=== PATIENT | female | born 2000 | race African-American/Black ===

== ENCOUNTER 2021-06-04 13:16 | Inpatient (IN) | payer OTHER, SELFPAY ==
--- NOTE | ~2021-06-04 | CT_ITS ---
EXAMINATION: CT abdomen pelvis wo con DATE: 06/05/2021 10:07 INDICATION: Abdominal pain TECHNIQUE: Computed tomography (CT) of the abdomen and pelvis was performed without intravenous contr ast. Automated exposure control and iterative reconstruction technique were employed. The dose-length product was 225.73 mGy-cm. COMPARISON: None FINDINGS: Lung bases are clear. Heart size is normal. No pericardial or pleural effusion. Central venous cathet er in the superior vena cava with distal tip at the high right atrium. Diffuse mildly increased densi ty of the liver with HU of 77. Gallbladder, spleen, pancreas, bilateral adrenal glands and kidneys ar e normal. Marked distention of the bladder which measures 16 x 11 x 13 cm. Uterus and adnexa are unre markable. Bowels including the appendix are unremarkable. No bowel wall thickening or obstruction. No free intraperitoneal gas or fluid. No pathologically enlarged abdominal or pelvic lymphadenopathy. B ones are unremarkable. IMPRESSION: 1. Marked distention of the bladder. No other acute intra-abdominal/pelvic process. 2. Borderline elevated hepatic attenuation. Differential would include iron deposition cysts in the s etting of hemachromatosis or hemosiderosis, copper deposition in the setting of Patrick's disease, gly cogen storage diseases and related to medications such as amiodarone or gold therapy. Reviewed, dictated and finalized at location A. IMPRESSION: 1. Marked distention of the bladder. No other acute intra-abdominal/pelvic proc ess. 2. Borderline elevated hepatic attenuation. Differential would include iron dep osition cysts in the setting of hemachromatosis or hemosiderosis, copper deposi tion in the setting of Patrick's disease, glycogen storage diseases and related to medications such as amiodarone or gold therapy.
[2021-06-04 13:15] VITALS: BP 105/76; PULSE 133; RESP 16; TEMP 37.1; O2SAT 99
--- NOTE | 2021-06-04 13:19 | ADMGEN ---
This patient, Westley Whitaker, was admitted to Intensive Care Unit-1. Patient/family oriented to hospital policies and general routines including ID bracelet, bed and alarms, visiting hours, pain management, procedures, bathroom and other care routines, personal items, smoking policy, room service/diet, and visiting hours. Information on how to activate the Rapid Response Team has been discussed. Patient/Family are encouraged to report perceived risks to care and to ask questions if they do not understand what they are told or what they should do.
--- NOTE | 2021-06-04 13:19 | PC.NURSE ---
BG 196 on admission. Insulin gtt resumed
[2021-06-04 13:28] VITALS: BMI 22.1
--- NOTE | 2021-06-04 13:54 | WPDCNINT ---
Assessment and Plan Assessment and plan (1) DKA (diabetic ketoacidosis): Code(s): E11.10 - Type 2 diabetes mellitus with ketoacidosis without coma Status: Acute Assessment and Plan: patient has received 4-5 L of IV fluid bolus. blood sugar now is less than 200 transition to D5 half-normal with potassium continue insulin drip serial BMPs (2) Diabetic neuropathy: Code(s): E11.40 - Type 2 diabetes mellitus with diabetic neuropathy, unspecified Status: Acute Assessment and Plan: will resume Neurontin once patient is able to take p.o. medication (3) Diabetes mellitus: Code(s): E11.9 - Type 2 diabetes mellitus without complications Status: Acute Assessment and Plan: Consult nurse educator HB A1c (4) Abdominal pain: Code(s): R10.9 - Unspecified abdominal pain Status: Acute Assessment and Plan: likely secondary to DKA LFTs were unremarkable lactate had normalized UA unremarkable check lipase check CT abdomen pelvis (5) Back pain: Code(s): M54.9 - Dorsalgia, unspecified Status: Acute Assessment and Plan: patient reports back pain which is new as per her and started while she was in the hospital.. She has diffuse tenderness in the lumbar spine and both flanks along with abdomen is out of proportion of her symptoms. LFTs were unremarkable lactate had normalized UA unremarkable check lipase check CT abdomen pelvis (6) Lactic acidosis: Code(s): E87.2 - Acidosis Status: Acute Assessment and Plan: her initial lactate was 2.7 but repeat lactate was 1.5 after IV fluid. likely secondary to hypovolemia and dehydration cultures were sent and pending chest x-ray and UA are negative WBC normal Additional Plan DVT prophylaxis - SCDs Code Status - Full Code Spectrographic Analyst Consult Note Consult date: 06/04/21 Time Seen: 13:30 HPI: Westley Whitaker is a 20 year old female with history of diabetes was transferred to [facility] with DKA. Patient states she started feeling short of breath this morning. Her sugars have been running high over last few days despite her taking her insulin regularly. She denies any chest pain cough or fever. she did have mild abdominal pain before going to the hospital but no nausea vomiting diarrhea or constipation . She denies any sick contacts. He has been admitted in the past with DKA. No change in sensation of taste or smell. He has not received COVID vaccine. No dysuria, Foul-smelling urine or hematuria. Review system was positive for back pain which she states started after coming to the hospital is 10/10 severe, does not radiate anywhere, no relieving or aggravating factors. .Denies any weakness or paresthesias in extremities, states that pain was not present before going to the hospital. no loss of bowel or bladder control. she does report pain in the legs but states that is regular neuropathy pain and is not any different. . She denies any fall or injury only. All other systems were reviewed and were negative. Patient was found to be tachycardic and in DKA in outside hospital ED. She was given IV fluid bolus. they were unable to place peripheral IV hence his central venous catheter was placed. patient was started on IV insulin. her point of care test was negative. EKG showed sinus tachycardia. her chest x-ray was unremarkable and UA was negative. her initial lactic acid was 2.7 but repeat lactic acid was normal COVID-19 PCR test was negative Review of Systems Review of Systems: All systems reviewed & are unremarkable except as noted in HPI and below (HPI) [facility] Past Medical History Medical History (Updated 06/04/21 @ 14:05 by Maurice Vallejo MD) Diabetes mellitus Diabetic neuropathy Social History Social History (Updated 06/04/21 @ 13:56 by Maurice Vallejo MD) Smoking status: Current every day smoker Alcohol intake: tomasz
[2021-06-04] MEDS: KCL 20 MEQ/D5/0.45% SOD CHL 1,000 ML 150 ML IV CONT (13:56)
[2021-06-04 14:00] VITALS: BP 113/81; PULSE 123; RESP 20; O2SAT 100
[2021-06-04] MEDS: MORPHINE SULFATE (*CRX) 2 MG/ML INJ IV PUSH (14:09)
[2021-06-04 14:22] LABS: Anion Gap 20 mmol/L (8-16); Blood Urea Nitrogen 8 mg/dL (7-17); Calcium 7.9 mg/dL (8.4-10.2); Carbon Dioxide 6 mmol/L (22-30); Chloride 118 mmol/L (98-107); Estimated CRCL calculation 103 ml/min; Estimated Glomerular Filt Rate > 60; Glucose 171 mg/dL (65-110); Magnesium 1.9 mg/dL (1.6-2.3); Phosphorus 2.6 mg/dL (2.5-4.5); Potassium 4.2 mmol/L (3.4-5.0); Sodium 144 mmol/L (137-145)
[2021-06-04 14:31] LABS: Glucose Point of Care 195 mg/dl (65-105)
--- NOTE | 2021-06-04 14:31 | PM.IMHP ---
H&P: HPI History of Present Illness Date/Time: 06/04/21 14:31 Chief Complaint: DKA Narrative: 20 years old female with history of insulin-dependent diabetes was transferred from [facility] with management of DKA in [facility] intensive care unit. According to the patient his diabetes for long time for the last few days she was not feeling well, he was feeling weak and tired he also abdominal pain but no nausea or vomiting. Patient denies any chest pain or shortness of breath at present. Patient went to [facility] he was given IV fluids, central line was placed. Patient test was negative. Patient COVID test was negative. At present patient is slightly drowsy but feel much better. Patient denies any shortness of breath or chest pain. Patient abdominal pain is also better now. Patient denies any fever chills. Review of Systems Review of Systems: All systems reviewed & are unremarkable except as noted in HPI and below ( the history and physical examination) PMFSH Past Medical History Medical History Diabetes mellitus Diabetic neuropathy Social History Social History Smoking status: Current every day smoker Alcohol intake: never Substance use: current Substance use type: marijuana Gender identity (if verbalized by the patient): Female Spiritual care concerns: No Meds Home Medications and Allergies Home Medications Medication Instructions Recorded Confirmed Type gabapentin 600 mg PO TID 06/04/21 06/04/21 History Allergies Allergy/AdvReac Type Severity Reaction Status Date / Time No Known Allergies Allergy Unverified 06/17/19 22:57 Vital Signs Vital Signs - 24 hr 06/04/21 13:15 Temperature 37.1 C Pulse Rate 133 H Respiratory Rate 16 Blood Pressure 105/76 Pulse Oximetry 99 Exam Narrative: General: Pt is alert awake and in NAD Lungs/Chest: Trachea central Clear BS B/L, No crackles or wheezing. Cardiac: RRR. Normal S1 S2. No murmurs Circulation: Pedal pulses are intact and symmetrical. Abdomen: Normal bowel sounds.. Soft. nondistended, skin piercing in umbilicus, mild diffuse tenderness to palpation, no guarding or rigidity Extremities: No clubbing, cyanosis or edema. Warm : Mcdaniel in place Neurologic: Follows commands. Moves all 4 extremities PERRL alert oriented x3, sensation to touch is intact in both feet, muscle strength is normal bilaterally, no focal neurological deficit heparin Skin: several tattoos on skin MSK: patient reports diffuse tenderness in lumbar spine but also on both flanks H&P: Results Labs Labs: [facility] 06/04/21 14:02 Sodium 144 Potassium 4.2 Chloride 118 H Carbon Dioxide 6 L BUN 8 Creatinine 0.60 L Glucose 171 H Calcium 7.9 L Assessment and Plan Assessment and plan (1) DKA (diabetic ketoacidosis): Code(s): E11.10 - Type 2 diabetes mellitus with ketoacidosis without coma Status: Acute Assessment and Plan: patient has received 4-5 L of IV fluid bolus. blood sugar now is less than 200 transition to D5 half-normal with potassium continue insulin drip serial BMPs (2) Diabetic neuropathy: Code(s): E11.40 - Type 2 diabetes mellitus with diabetic neuropathy, unspecified Status: Acute Assessment and Plan: will resume Neurontin once patient is able to take p.o. medication (3) Diabetes mellitus: Code(s): E11.9 - Type 2 diabetes mellitus without complications Status: Acute Assessment and Plan: Consult clinical nurse educator HB A1c (4) Abdominal pain: Code(s): R10.9 - Unspecified abdominal pain Status: Acute Assessment and Plan: likely secondary to DKA LFTs were unremarkable lactate had normalized UA unremarkable check lipase check CT abdomen pelvis (5) Back pain: Code(s): M54.9 - Dorsalgia, unspeci
[2021-06-04 14:41] LABS: Lipase 34 U/L (23-300)
[2021-06-04 15:54] LABS: Glucose Point of Care 166 mg/dl (65-105)
[2021-06-04 16:00] VITALS: BP 102/67; PULSE 112; PULSE 114; RESP 16; TEMP 37; O2SAT 100
[2021-06-04] MEDS: INSULIN HUMAN REGULAR (*BKC) 100 UNITS in SODIUM CHLORIDE 0.9% IV 99 ML IV CONT (16:12)
[2021-06-04 18:00] VITALS: BP 106/62; PULSE 114; RESP 21; O2SAT 98
[2021-06-04 18:12] LABS: Glucose Point of Care 173 mg/dl (65-105)
[2021-06-04 18:12] LABS: Glucose Point of Care 149 mg/dl (65-105)
[2021-06-04 18:13] LABS: Glucose Point of Care 152 mg/dl (65-105)
[2021-06-04 18:19] LABS: Anion Gap 11 mmol/L (8-16); Blood Urea Nitrogen 5 mg/dL (7-17); Calcium 7.8 mg/dL (8.4-10.2); Carbon Dioxide 10 mmol/L (22-30); Chloride 115 mmol/L (98-107); Estimated CRCL calculation 148 ml/min; Estimated Glomerular Filt Rate > 60; Glucose 140 mg/dL (65-110); Potassium 3.7 mmol/L (3.4-5.0); Sodium 136 mmol/L (137-145)
[2021-06-04] MEDS: INSULIN GLARGINE (*BKC) 100 UNITS/ML 50 UNITS SUB-Q (18:58)
[2021-06-04] MEDS: INSULIN ASPART (*BKC) 100 UNITS/ML SUB-Q (18:59)
[2021-06-04 19:06] LABS: Glucose Point of Care 140 mg/dl (65-105)
[2021-06-04 20:00] VITALS: BP 107/68; PULSE 105; PULSE 115; RESP 12; TEMP 36.9; O2SAT 100
[2021-06-04] MEDS: KCL 20MEQ/0.9% SOD CHL 1,000 ML 75 ML IV CONT (20:35)
[2021-06-04] MEDS: ONDANSETRON INJ 4 MG/2 ML VIAL IV PUSH (20:35)
[2021-06-04 20:40] LABS: Glucose Point of Care 110 mg/dl (65-105)
[2021-06-04 22:00] VITALS: BP 116/65; PULSE 119; PULSE 122; RESP 16; O2SAT 98
[2021-06-05] VITALS (9 sets, daily range): BP systolic 97–123; BP diastolic 52–85; PULSE 60–117; RESP 12–20; TEMP 36.4–37.3; O2SAT 10–100; BMI 22.6
[2021-06-05 00:13] LABS: Glucose Point of Care 52 mg/dl (65-105)
[2021-06-05] MEDS: HYDROcodone/acetaminophen (*CRX) 5-325 MG TABLET 1 TAB PO (00:16)
[2021-06-05 02:11] LABS: Glucose Point of Care 139 mg/dl (65-105)
[2021-06-05 04:51] LABS: Hematocrit 33.5 % (37.0-47.0); Hemoglobin 10.7 g/dL (12.0-15.0); Mean Corpuscular HGB Conc 31.9 g/dl (32-36); Mean Corpuscular Hemoglobin 28.5 pg (26-34); Mean Corpuscular Volume 89.1 fl (80-100); Mean Platelet Volume 9.8 fl (7.4-10.4); Platelet Count Result 278 k/mm3 (150-375); Red Blood Count 3.76 M/mm3 (4.2-5.4); Red Cell Distribution Width 15.1 % (11.5-14.5); White Blood Count 6.1 K/mm3 (4.5-10.0)
[2021-06-05 05:16] LABS: Alanine Aminotransferase 10 U/L (4-35); Albumin Level 3.3 g/dL (3.5-5.1); Alkaline Phosphatase 92 U/L (38-126); Anion Gap 11 mmol/L (8-16); Aspartate Amino Transferase 18 U/L (14-36); Bilirubin,Total 0.6 mg/dL (0.2-1.3); Blood Urea Nitrogen 3 mg/dL (7-17); Calcium 8.6 mg/dL (8.4-10.2); Carbon Dioxide 13 mmol/L (22-30); Chloride 108 mmol/L (98-107); Estimated CRCL calculation 148 ml/min; Estimated Glomerular Filt Rate > 60; Glucose 77 mg/dL (65-110); Magnesium 1.6 mg/dL (1.6-2.3); Potassium 3.5 mmol/L (3.4-5.0); Sodium 132 mmol/L (137-145)
--- NOTE | 2021-06-05 06:23 | PM.IMPN ---
Progress Note: A&P Assessment and Plan (1) DKA (diabetic ketoacidosis): Code(s): E11.10 - Type 2 diabetes mellitus with ketoacidosis without coma Status: Acute Assessment and Plan: patient has received 4-5 L of IV fluid bolus. blood sugar now is less than 200 transition to D5 half-normal with potassium continue insulin drip serial BMPs 06/05/2021 patient bicarb is slightly better now, electrolytes stable, WBC is normal. Will continue current treatment (2) Diabetic neuropathy: Code(s): E11.40 - Type 2 diabetes mellitus with diabetic neuropathy, unspecified Status: Acute Assessment and Plan: will resume Neurontin once patient is able to take p.o. medication (3) Diabetes mellitus: Code(s): E11.9 - Type 2 diabetes mellitus without complications Status: Acute Assessment and Plan: Consult nurses educator HB A1c (4) Abdominal pain: Code(s): R10.9 - Unspecified abdominal pain Status: Acute Assessment and Plan: likely secondary to DKA LFTs were unremarkable lactate had normalized UA unremarkable check lipase check CT abdomen pelvis (5) Back pain: Code(s): M54.9 - Dorsalgia, unspecified Status: Acute Assessment and Plan: patient reports back pain which is new as per her and started while she was in the hospital.. She has diffuse tenderness in the lumbar spine and both flanks along with abdomen is out of proportion of her symptoms. LFTs were unremarkable lactate had normalized UA unremarkable check lipase check CT abdomen pelvis (6) Lactic acidosis: Code(s): E87.2 - Acidosis Status: Acute Assessment and Plan: her initial lactate was 2.7 but repeat lactate was 1.5 after IV fluid. likely secondary to hypovolemia and dehydration cultures were sent and pending chest x-ray and UA are negative WBC normal Additional Plan DVT prophylaxis - SCDs Code Status - Full Code will consult flooring professional 06/05/2021 Patient is more awake and alert. Patient WBC is normal. Bicarb is slightly better. Electrolytes are stable. Will continue current treatment monitor electrolytes and WBC. Subjective Date/time seen: 06/05/21 06:23 Patient was seen during the morning rounds today. Patient is more awake and alert. No shortness of breath or chest pain. No abdominal pain, no nausea, no vomiting. Mood stable. Review of Systems Review of Systems: All systems reviewed & are unremarkable except as noted in HPI and below ( the history and physical examination) Exam Narrative: General: Pt is alert awake and in NAD Lungs/Chest: Trachea central Clear BS B/L, No crackles or wheezing. Cardiac: RRR. Normal S1 S2. No murmurs Circulation: Pedal pulses are intact and symmetrical. Abdomen: Normal bowel sounds.. Soft. nondistended, skin piercing in umbilicus, mild diffuse tenderness to palpation, no guarding or rigidity Extremities: No clubbing, cyanosis or edema. Warm : Mcdaniel in place Neurologic: Follows commands. Moves all 4 extremities PERRL alert oriented x3, sensation to touch is intact in both feet, muscle strength is normal bilaterally, no focal neurological deficit heparin Skin: several tattoos on skin MSK: patient reports diffuse tenderness in lumbar spine but also on both flanks Objective Data Vital Signs Vital Signs: Vital Signs - 24 hr 06/04/21 13:15 06/04/21 14:00 06/04/21 16:00 Temperature 37.1 C 37.0 C Pulse Rate 133 H 123 H 112 H Respiratory Rate 16 20 16 Blood Pressure 105/76 113/81 102/67 Pulse Oximetry 99 100 100 06/04/21 18:00 06/04/21 20:00 06/04/21 22:00 Temperature 36.9 C Pulse Rate 114 H 105 H 122 H Respiratory Rate 21 H 12 16 Blood Pressure 106/62 107/68 116/65 Pulse Oximetry 98 100 98 06/05/21 00:00 06/05/21 02:00 06/05/21 04:00 Temperature 36.5 C 36.9 C Pulse Rate 115 H 97 99 Respiratory Rate 19 16 12 Blood Pressure 111/66 97/53 L 118/77
[2021-06-05 06:31] LABS: Glucose Point of Care 74 mg/dl (65-105)
[2021-06-05 07:55] LABS: Glucose Point of Care 158 mg/dl (65-105)
[2021-06-05] MEDS: INSULIN ASPART (*BKC) 100 UNITS/ML SUB-Q ×3 (08:03→18:13)
[2021-06-05] MEDS: POTASSIUM CHLORIDE 20 MEQ TABLET 40 MEQ PO (08:03)
--- NOTE | 2021-06-05 08:40 | WPDINTPN ---
Progress Note: A&P Assessment and Plan (1) DKA (diabetic ketoacidosis): Code(s): E11.10 - Type 2 diabetes mellitus with ketoacidosis without coma Status: Acute Assessment and Plan: Patient was aggressively volume resuscitated. anion gap has closed patient transition to subcutaneous insulin (2) Diabetic neuropathy: Code(s): E11.40 - Type 2 diabetes mellitus with diabetic neuropathy, unspecified Status: Acute Assessment and Plan: will resume Neurontin once patient is able to take p.o. medication (3) Diabetes mellitus: Code(s): E11.9 - Type 2 diabetes mellitus without complications Status: Acute Assessment and Plan: Lantus with with meal insulin decrease Lantus continue sliding scale Consult natural resources extension educator HB A1c (4) Abdominal pain: Code(s): R10.9 - Unspecified abdominal pain Status: Acute Assessment and Plan: likely secondary to DKA LFTs were unremarkable lactate had normalized UA unremarkable normal lipase check CT abdomen pelvis (5) Back pain: Code(s): M54.9 - Dorsalgia, unspecified Status: Acute Assessment and Plan: patient reports back pain which is new as per her and started while she was in the hospital.. She has diffuse tenderness in the lumbar spine and both flanks along with abdomen is out of proportion of her symptoms. LFTs were unremarkable lactate had normalized UA unremarkable normal lipase check CT abdomen pelvis. patient refused for CT yesterday. it is scheduled for today (6) Lactic acidosis: Code(s): E87.2 - Acidosis Status: Acute Assessment and Plan: her initial lactate was 2.7 but repeat lactate was 1.5 after IV fluid. likely secondary to hypovolemia and dehydration cultures were sent and pending chest x-ray and UA are negative WBC normal Additional Plan DVT prophylaxis - SCDs Code Status - Full Code transfer out of ICU today Subjective Date/time seen: 06/05/21 08:40 Patient states she is feeling better. Pain is better and she states is 8/10. Her abdominal pain is better she states is 6/10. Denies any fever chest pain shortness of breath nausea vomiting. She started eating p.o. diet with dinner last night and is eating her breakfast this morning without any issues. She refused to go for CT scan yesterday. Her anion gap closed and she was transition to subcutaneous insulin and normal saline. All other systems were reviewed and were negative Review of Systems Review of Systems: All systems reviewed & are unremarkable except as noted in HPI and below (HPI) Exam Narrative: General: Pt is alert awake and in NAD Lungs/Chest: Trachea central Clear BS B/L, No crackles or wheezing. Cardiac: RRR. Normal S1 S2. No murmurs Circulation: Pedal pulses are intact and symmetrical. Abdomen: Normal bowel sounds.. Soft. nondistended, skin piercing in umbilicus, mild diffuse tenderness to palpation, no guarding or rigidity Extremities: No clubbing, cyanosis or edema. Warm : Mcdaniel in place Neurologic: Follows commands. Moves all 4 extremities PERRL alert oriented x3, sensation to touch is intact in both feet, muscle strength is normal bilaterally, no focal neurological deficit heparin Skin: several tattoos on skin MSK: patient reports diffuse tenderness in lumbar spine but also on both flanks Objective Data Vital Signs Vital Signs: Vital Signs - 24 hr 06/04/21 13:15 06/04/21 14:00 06/04/21 16:00 Temperature 37.1 C 37.0 C Pulse Rate 133 H 123 H 112 H Respiratory Rate 16 20 16 Blood Pressure 105/76 113/81 102/67 Pulse Oximetry 99 100 100 06/04/21 18:00 06/04/21 20:00 06/04/21 22:00 Temperature 36.9 C Pulse Rate 114 H 105 H 122 H Respiratory Rate 21 H 12 16 Blood Pressure 106/62 107/68 116/65 Pulse Oximetry 98 100 98 06/05/21 00:00 06/05/21 02:00 06/05/21 04:00 Temperature 36.5 C 36.9 C Pulse Rate 115 H 97 99 Respirato
[2021-06-05 10:53] LABS: Glucose Point of Care 147 mg/dl (65-105)
[2021-06-05] MEDS: GABAPENTIN 300 MG CAPSULE 600 MG PO ×3 (10:54→18:13)
--- NOTE | 2021-06-05 11:16 | PC.NURSE ---
TRANSFERRED TO [facility] 331. REPORT GIVEN TO AFRICA FUENTES. ALL QUESTIONS ANSWERED.
--- NOTE | 2021-06-05 11:30 | PC.NURSE ---
This patient, Westley Whitaker, was received from [ ] on 06/05/21 at 1125. Patient/family oriented to unit policies and routines
[2021-06-05 12:27] LABS: Glucose Point of Care 141 mg/dl (65-105)
[2021-06-05 18:00] LABS: Glucose Point of Care 117 mg/dl (65-105)
[2021-06-05 18:31] LABS: Hemoglobin A1C 11.9 % (<5.7)
[2021-06-05] MEDS: INSULIN GLARGINE (*BKC) 100 UNITS/ML 40 UNITS SUB-Q (20:52)
[2021-06-05 21:40] LABS: Glucose Point of Care 255 mg/dl (65-105)
[2021-06-06 06:00] VITALS: BP 92/62; PULSE 99; RESP 18; TEMP 36.7; O2SAT 99
[2021-06-06 06:26] LABS: Hematocrit 34.1 % (37.0-47.0); Hemoglobin 10.8 g/dL (12.0-15.0); Mean Corpuscular HGB Conc 31.7 g/dl (32-36); Mean Corpuscular Hemoglobin 28.4 pg (26-34); Mean Corpuscular Volume 89.7 fl (80-100); Mean Platelet Volume 10.3 fl (7.4-10.4); Platelet Count Result 276 k/mm3 (150-375); Red Cell Distribution Width 15.9 % (11.5-14.5); White Blood Count 3.7 K/mm3 (4.5-10.0)
[2021-06-06 06:31] LABS: Alanine Aminotransferase 11 U/L (4-35); Albumin Level 3.2 g/dL (3.5-5.1); Alkaline Phosphatase 99 U/L (38-126); Anion Gap 9 mmol/L (8-16); Aspartate Amino Transferase 19 U/L (14-36); Bilirubin,Total 1.5 mg/dL (0.2-1.3); Blood Urea Nitrogen 5 mg/dL (7-17); Calcium 8.8 mg/dL (8.4-10.2); Carbon Dioxide 23 mmol/L (22-30); Chloride 104 mmol/L (98-107); Estimated CRCL calculation 189 ml/min; Estimated Glomerular Filt Rate > 60; Glucose 193 mg/dL (65-110); Magnesium 1.6 mg/dL (1.6-2.3); Potassium 3.4 mmol/L (3.4-5.0); Sodium 136 mmol/L (137-145)
[2021-06-06 07:36] LABS: Glucose Point of Care 161 mg/dl (65-105)
[2021-06-06] MEDS: GABAPENTIN 300 MG CAPSULE 600 MG PO ×3 (08:32→17:11)
[2021-06-06] MEDS: INSULIN ASPART (*BKC) 100 UNITS/ML SUB-Q ×4 (08:32→17:52)
[2021-06-06] MEDS: POTASSIUM CHLORIDE 20 MEQ TABLET 40 MEQ PO (10:27)
[2021-06-06 12:26] LABS: Glucose Point of Care 279 mg/dl (65-105)
--- NOTE | 2021-06-06 13:38 | PC.NURSE ---
Outpatient referral started for initial DSMT and MNT. [facility].
[2021-06-06 14:00] VITALS: BP 98/62; PULSE 106; RESP 18; TEMP 36.9; O2SAT 100
[2021-06-06 17:51] LABS: Glucose Point of Care 185 mg/dl (65-105)
--- NOTE | 2021-06-06 17:52 | PM.IMPN ---
Progress Note: A&P Assessment and Plan (1) DKA (diabetic ketoacidosis): Code(s): E11.10 - Type 2 diabetes mellitus with ketoacidosis without coma Status: Acute Assessment and Plan: Patient was aggressively volume resuscitated. anion gap has closed patient transition to subcutaneous insulin 06/06/21 17:52 patient with a type 1 diabetes presented with DKA was seen in ICU was infusion of insulin and was vigorously hydrated blood sugars were trending down and patient anion gap was closing patient was placed on long-acting insulin and on sliding scale and now patient is out of ICU on medical floor, today patient is feeling better denies any abdominal pain nausea or vomiting fever or chills, her blood shows a close to baseline, patient seen by hematology nurse educator, will monitor patient overnight if remains clinically stable will discharge patient home tomorrow. (2) Diabetic neuropathy: Code(s): E11.40 - Type 2 diabetes mellitus with diabetic neuropathy, unspecified Status: Acute Assessment and Plan: will resume Neurontin once patient is able to take p.o. medication (3) Diabetes mellitus: Code(s): E11.9 - Type 2 diabetes mellitus without complications Status: Acute Assessment and Plan: Lantus with with meal insulin decrease Lantus continue sliding scale Consult hematology nurse educator HB A1c (4) Abdominal pain: Code(s): R10.9 - Unspecified abdominal pain Status: Acute Assessment and Plan: likely secondary to DKA LFTs were unremarkable lactate had normalized UA unremarkable normal lipase check CT abdomen pelvis (5) Back pain: Code(s): M54.9 - Dorsalgia, unspecified Status: Acute Assessment and Plan: patient reports back pain which is new as per her and started while she was in the hospital.. She has diffuse tenderness in the lumbar spine and both flanks along with abdomen is out of proportion of her symptoms. LFTs were unremarkable lactate had normalized UA unremarkable normal lipase check CT abdomen pelvis. patient refused for CT yesterday. it is scheduled for today (6) Lactic acidosis: Code(s): E87.2 - Acidosis Status: Acute Assessment and Plan: her initial lactate was 2.7 but repeat lactate was 1.5 after IV fluid. likely secondary to hypovolemia and dehydration cultures were sent and pending chest x-ray and UA are negative WBC normal Additional Plan DVT prophylaxis - SCDs Code Status - Full Code transfer out of ICU today Subjective Date/time seen: 06/06/21 17:52 patient with a type 1 diabetes presented with DKA was seen in ICU was infusion of insulin and was vigorously hydrated blood sugars were trending down and patient anion gap was closing patient was placed on long-acting insulin and on sliding scale and now patient is out of ICU on medical floor, today patient is feeling better denies any abdominal pain nausea or vomiting fever or chills, her blood shows a close to baseline, patient seen by hematology nurse educator, will monitor patient overnight if remains clinically stable will discharge patient home tomorrow. Review of Systems Review of Systems: All systems reviewed & are unremarkable except as noted in HPI and below (HPI) Exam Narrative: Patient is comfortable, NAD HEENT: eyes are clear and none icteric LUNGS: normal respiratory effort ABD: not distended Lower extremities: no edema SKIN: nonjaundiced Neuro: grossly intact normal speech. Objective Data Vital Signs Vital Signs: Vital Signs - 24 hr 06/05/21 22:00 06/06/21 06:00 06/06/21 14:00 Temperature 98.0 F 98.0 F 98.5 F Pulse Rate 60 99 106 H Respiratory Rate 18 18 18 Blood Pressure 98/65 L 92/62 L 98/62 L Pulse Oximetry 98 99 100 Intake/Output Intake/Output: Intake & Output 06/03/21 06/04/21 06/05/21 06/06/21 23:59 23:59 23:59 23:59 Intake Total 500 970 840 Output Total 1000 1050 B
[2021-06-06] MEDS: INSULIN GLARGINE (*BKC) 100 UNITS/ML 40 UNITS SUB-Q (20:29)
[2021-06-06 21:01] LABS: Glucose Point of Care 185 mg/dl (65-105)
[2021-06-06 22:00] VITALS: BP 95/62; PULSE 84; RESP 18; TEMP 36.4; O2SAT 95
[2021-06-07] MEDS: MORPHINE SULFATE (*CRX) 2 MG/ML INJ IV PUSH (04:15)
[2021-06-07 04:33] LABS: Hematocrit 31.5 % (37.0-47.0); Mean Corpuscular HGB Conc 31.7 g/dl (32-36); Mean Corpuscular Volume 91.3 fl (80-100); Mean Platelet Volume 9.8 fl (7.4-10.4); Platelet Count Result 229 k/mm3 (150-375); Red Blood Count 3.45 M/mm3 (4.2-5.4); Red Cell Distribution Width 15.9 % (11.5-14.5); White Blood Count 4.3 K/mm3 (4.5-10.0)
[2021-06-07 04:45] LABS: Alanine Aminotransferase 10 U/L (4-35); Alkaline Phosphatase 94 U/L (38-126); Anion Gap 6 mmol/L (8-16); Aspartate Amino Transferase 15 U/L (14-36); Bilirubin,Total 0.8 mg/dL (0.2-1.3); Blood Urea Nitrogen 5 mg/dL (7-17); Calcium 8.6 mg/dL (8.4-10.2); Carbon Dioxide 24 mmol/L (22-30); Chloride 101 mmol/L (98-107); Estimated CRCL calculation 189 ml/min; Estimated Glomerular Filt Rate > 60; Glucose 204 mg/dL (65-110); Magnesium 1.5 mg/dL (1.6-2.3); Potassium 3.5 mmol/L (3.4-5.0); Sodium 131 mmol/L (137-145)
[2021-06-07 06:00] VITALS: BP 97/65; PULSE 94; RESP 18; TEMP 36.2; O2SAT 100
[2021-06-07 07:49] LABS: Glucose Point of Care 157 mg/dl (65-105)
[2021-06-07] MEDS: GABAPENTIN 300 MG CAPSULE 600 MG PO (08:07)
[2021-06-07] MEDS: INSULIN ASPART (*BKC) 100 UNITS/ML SUB-Q (08:07)
[2021-06-07] MEDS: HYDROcodone/acetaminophen (*CRX) 5-325 MG TABLET 1 TAB PO (09:07)
[2021-06-07] MEDS: POTASSIUM CHLORIDE 20 MEQ TABLET 40 MEQ PO (09:16)
[2021-06-07] MEDS: MAGNESIUM SULF 2 GM/WATER 50ML 2 GM/50 ML BAG IVPB (09:16)
--- NOTE | 2021-06-07 09:49 | PM.DS ---
DS: Admitting Diagnosis Admitting Diagnosis DKA DS: Discharge Diagnosis Discharge Diagnosis (1) DKA (diabetic ketoacidosis): Code(s): E11.10 - Type 2 diabetes mellitus with ketoacidosis without coma Status: Acute Assessment and Plan: Patient was aggressively volume resuscitated. anion gap has closed patient transition to subcutaneous insulin 06/06/21 17:52 patient with a type 1 diabetes presented with DKA was seen in ICU was infusion of insulin and was vigorously hydrated blood sugars were trending down and patient anion gap was closing patient was placed on long-acting insulin and on sliding scale and now patient is out of ICU on medical floor, today patient is feeling better denies any abdominal pain nausea or vomiting fever or chills, her blood shows a close to baseline, patient seen by wellness educator, will monitor patient overnight if remains clinically stable will discharge patient home tomorrow. (2) Diabetic neuropathy: Code(s): E11.40 - Type 2 diabetes mellitus with diabetic neuropathy, unspecified Status: Acute Assessment and Plan: will resume Neurontin once patient is able to take p.o. medication (3) Diabetes mellitus: Code(s): E11.9 - Type 2 diabetes mellitus without complications Status: Acute Assessment and Plan: Lantus with with meal insulin decrease Lantus continue sliding scale Consult wellness educator HB A1c (4) Abdominal pain: Code(s): R10.9 - Unspecified abdominal pain Status: Acute Assessment and Plan: likely secondary to DKA LFTs were unremarkable lactate had normalized UA unremarkable normal lipase check CT abdomen pelvis (5) Back pain: Code(s): M54.9 - Dorsalgia, unspecified Status: Acute Assessment and Plan: patient reports back pain which is new as per her and started while she was in the hospital.. She has diffuse tenderness in the lumbar spine and both flanks along with abdomen is out of proportion of her symptoms. LFTs were unremarkable lactate had normalized UA unremarkable normal lipase check CT abdomen pelvis. patient refused for CT yesterday. it is scheduled for today (6) Lactic acidosis: Code(s): E87.2 - Acidosis Status: Acute Assessment and Plan: her initial lactate was 2.7 but repeat lactate was 1.5 after IV fluid. likely secondary to hypovolemia and dehydration cultures were sent and pending chest x-ray and UA are negative WBC normal DS: Summary Hospital Course Reason for hospitalization: Chief Complaint: DKA Narrative: 20 years old female with history of insulin-dependent diabetes was transferred from [facility] with management of DKA in [facility] intensive care unit. According to the patient his diabetes for long time for the last few days she was not feeling well, he was feeling weak and tired he also abdominal pain but no nausea or vomiting. Patient denies any chest pain or shortness of breath at present. Patient went to [facility] he was given IV fluids, central line was placed. Patient test was negative. Patient COVID test was negative. At present patient is slightly drowsy but feel much better. Patient denies any shortness of breath or chest pain. Patient abdominal pain is also better now. Patient denies any fever chills. Hospital Course: 06/06/21 17:52 patient with a type 1 diabetes presented with DKA was seen in ICU was infusion of insulin and was vigorously hydrated blood sugars were trending down and patient anion gap was closing patient was placed on long-acting insulin and on sliding scale and now patient is out of ICU on medical floor, today patient is feeling better denies any abdominal pain nausea or vomiting fever or chills, her blood shows a close to baseline, patient seen by wellness educator, will monitor patient overnight if remains clinically stable will discharge patient home
[2021-06-07] MEDS: NEOMYCIN/POLYMYXIN/BACITRACIN OINTMENT PACKET 1 PACKET (11:30)
== END 2021-06-07 12:05 | disposition home or self-care (01) | DRG 420 ==
LOC: ANH3MEDSUR 06-07 11:45 → ANHICU 06-08 17:44
PROVIDERS: Internal Medicine; Internal Medicine Critical Care Medicine; Admitting Provider Internal Medicine; Visit Provider Family Medicine
DX: E10.10 Type 1 diabetes mellitus with ketoacidosis without coma (principal); E10.40 Type 1 diabetes mellitus with diabetic neuropathy, unspecified; M54.9 Dorsalgia, unspecified; R10.9 Unspecified abdominal pain; Z79.899 Other long term (current) drug therapy
CPT/HCPCS: 36415; 74176; 80048; 80053; 82948; 83036; 83690; 83735; 84100; 85027; A9270; J1815; J2270; J2405; J3475; J3480